=== PATIENT | male | born 1950 | race Caucasian/White ===

== ENCOUNTER 2025-04-10 12:25 | Outpatient (CLI) | payer MEDICARE, SELFPAY ==
--- NOTE | ~2025-04-10 | MR_ITS ---
MRI of the lumbar spine Clinical History: Back pain Technique: Axial T2-weighted images, and sagittal T1-weighted, T2-weighted, and T2 fat-sat images wer e acquired. Findings: No fracture or subluxation of the lumbar spine identified. Vertebral bodies maintain normal height and alignment. No bone marrow signal abnormality seen. At L1-L2, there is no disc bulge or herniation. There is mild facet hypertrophy. No spinal canal sten osis or neural foraminal narrowing. At L2-L3, there is no disc bulge or herniation. There is moderate facet arthropathy. No central canal stenosis or neural foraminal narrowing. At L3-L4, there is minimal disc bulge with moderate to advanced facet arthropathy. No central canal s tenosis or neural foraminal narrowing. At L4-L5, there is minimal disc bulge with advanced facet arthropathy. No central canal stenosis or n eural foraminal narrowing. At L5-S1, there is minimal disc bulge with advanced facet arthropathy. No central canal stenosis. Pro bable minimal bilateral neural foraminal narrowing. Paravertebral soft tissues are unremarkable. Impression: Mild degenerative spondylosis, as above. Reviewed, dictated and finalized at location . Impression: Mild degenerative spondylosis, as above.
--- NOTE | ~2025-04-10 | MR_ITS ---
MRI of the cervical spine Clinical History: Neck pain Technique: Axial T2-weighted and gradient images, and sagittal T1-weighted, T2-weighted, and STIR efrain ges were acquired. Findings: There is no acute fracture or subluxation of the cervical spine. There is mild chronic loss of height of C6. No bone marrow signal abnormality seen. There is moderate to advanced degenerative change at the articulation of the odontoid process with the anterior arch of C1. At C2-C3, there is mild degenerative spurring and mild facet arthropathy. No spinal canal stenosis or cord compression. Probable minimal bilateral neural foraminal narrowing. At C3-C4, there is disc osteophyte complex. There is mild canal stenosis and minimal flattening the v entral cord. There is moderate right neural foraminal narrowing. Left neural foramen preserved. At C4-C5, there is disc osteophyte complex with canal stenosis and mild cord compression ventrally. P ossible minimal bilateral neural foraminal narrowing, left worse than right. At C5-C6, there is central disc protrusion which compresses the ventral spinal cord. Bilateral neural foramina are preserved. At C6-C7, there is minimal disc osteophyte complex. No canal stenosis, cord compression, or neural fo raminal narrowing. Paravertebral soft tissues are unremarkable. No abnormal signal seen in the spinal cord. Impression: Moderate to severe degenerative spondylosis at C3-C4, C4-C5, C5-C6, as detailed above. Additional degenerative changes, as above. Chronic loss of height of C6. Reviewed, dictated and finalized at [facility]. Impression: Moderate to severe degenerative spondylosis at C3-C4, C4-C5, C5-C6, as detailed above. Additional degenerative changes, as above. Chronic loss of height of C6.
== END 2025-04-10 12:26 | disposition home or self-care (01) ==
LOC: MICIMG 12:27
PROVIDERS: PCP Family Medicine; Visit Provider Student in an Organized Health Care Education/Training Program
DX: M25.50 Pain in unspecified joint (principal); M47.896 Other spondylosis, lumbar region; M47.892 Other spondylosis, cervical region; M50.30 Other cervical disc degeneration, unspecified cervical region
CPT/HCPCS: 72141; 72148